=== PATIENT | female | born 1995 | race Caucasian/White ===

== ENCOUNTER 2021-08-28 12:35 | Emergency (ER) | payer OTHER, SELFPAY ==
--- NOTE | 2021-08-28 12:46 | ED.SKABFB ---
HPI - Skin/Abscess/Foreign Bdy General Chief complaint: Skin/Abscess/Foreign Body Stated complaint: Rt Breast Pain Time Seen by Provider: 08/28/21 12:45 History of Present Illness HPI narrative: Ellen Ng is 26 yo female with no PMH who is breast-feeding and states that she has pain in her right breast and believes she has mastitis. Patient has been working with OB and sec reporting consultant is trying to breast-feed with a second child as she was not able to do that with her first. consult was there on and she was doing fine but she has had a sudden decrease in production of milk and she is engorged she has had problems intermittently with clogged ducts and they have given her Diflucan 150 mg x 2 which is had no effect, she has been taking warm showers, and using a nipple cream that her [employer] prescribed. Presently her right breast on the lateral side is red and warm and her other breast is hard, she believes this is due to another clogged duct Related Data Home Medications Medication Instructions Recorded Confirmed ferrous fumarate 324 mg (106 mg 1 tablet PO DAILY 08/28/21 08/28/21 iron) tablet (Ferrocite) lecithin 520 mg capsule 520 mg PO TID 08/28/21 08/28/21 norethindrone (contraceptive) 0.35 1 tablet PO DAILY 08/28/21 08/28/21 mg tablet vit#24-iron amino acid 1 tablet PO DAILY 08/28/21 08/28/21 chelat-folic acid 30 mg-975 mcg tablet Allergies Allergy/AdvReac Type Severity Reaction Status Date / Time No Known Allergies Allergy Verified 08/28/21 12:39 Review of Systems Review of Systems: CONSTITUTIONAL: Denies fever, chills, sweats. EYES: Denies visual changes, redness, discharge. ENT: Denies rhinorrhea, congestion, sore throat, otalgia. CARDIOVASCULAR: Denies chest pain, palpitations, edema. RESPIRATORY: Denies dyspnea, wheezing, cough GASTROINTESTINAL: Denies abdominal pain, nausea, vomiting, diarrhea. GENITOURINARY: Denies dysuria, hematuria, abnormal discharge SKIN: Denies rash or itching. NEUROLOGIC: Denies numbness, or focal weakness. PSYCHIATRIC: Denies anxiety or depression. Right breast mastitis possible and left breast engorgement due to clogged ducts PMFSH Past Medical History Medical History No acute medical problems Social History Social History (Updated 08/28/21 @ 13:07 by Tahmina Nicolas CNP) Smoking status: Never smoker Alcohol use details: on occasion Comments At time of signature, I agree with nursing past medical, surgical, social and family history. There is no relevant family history pertinent to the presenting complaint. Exam Narrative: GENERAL: This is a well-nourished, well-developed patient, in mild distress. HEAD: normocephalic, atraumatic. EYES: Sclera clear/white. Vision is grossly intact. EARS: External ears normal, Hearing grossly intact. NOSE: External nose normal without nasal discharge, nares without redness, no rhinorrhea. THROAT: Mucous membranes moist, NECK: Neck supple, CARDIOVASCULAR: Regular rate and rhythm without murmurs, gallops, or rubs. RESPIRATORY: Clear to auscultation. Breath sounds equal bilaterally. No wheezes, rales, or rhonchi. GASTROINTESTINAL: Abdomen soft, non-tender, SKIN: warm, intact with no suspicious lesions or rash, good texture and turgor.ilateral breast engorged- R lateral red rash, warm; L hard and engorged NEURO: awake, alert, and oriented to person, place and time. There were no obvious focal neurologic abnormalities. Steady gait EXTREMITIES: Normal range of motion. BACK: Nontender without deformity Course Course Emergency Course: Patient comes with engorgement of the left and right side warm cellulitic reaction lateral side of right breast Started on cephalexin 500 mg 3 times daily x10 days; has already tried Diflucan with no results; and continues to take warm showers and try to pump every 2 to 3 hours She is somewhat dis
[2021-08-28 12:47] VITALS: BP 118/66; PULSE 86; RESP 18; TEMP 36.6; O2SAT 100
== END 2021-08-28 13:13 | disposition home or self-care (01) ==
PROVIDERS: Emergency Provider Nurse Practitioner
DX: N61.0 Mastitis without abscess (principal)
CPT/HCPCS: 99203; G0463